=== PATIENT | female | born 1990 | race Caucasian/White ===

== ENCOUNTER → 2021-02-28 14:27 | Outpatient (BNVA) | payer OTHER, SELFPAY | PROVIDERS: Visit Provider Family Medicine | DX: Z20.822 Contact with and (suspected) exposure to COVID-19 (principal); R05.9 Cough, unspecified | CPT/HCPCS: 87400; 87635 ==

== ENCOUNTER → 2021-03-03 14:11 | Outpatient (BNVA) | payer OTHER, SELFPAY | PROVIDERS: Visit Provider Nurse Practitioner Family | DX: Z20.822 Contact with and (suspected) exposure to COVID-19 (principal) | CPT/HCPCS: 87635 ==

== ENCOUNTER 2022-08-20 12:24 | Emergency (ER) | payer OTHER, SELFPAY ==
[2022-08-20 12:33] VITALS: BMI 29.2
--- NOTE | 2022-08-20 12:41 | W.ED.UPPEXIN ---
HPI - Extremity Injury (Upper) General: Chief Complaint: Extremity Injury, Upper Stated Complaint: Right Hand/fingers Smashed Time Seen by Provider: 08/20/22 12:41 Source: patient Mode of arrival: ambulatory Limitations: no limitations History of Present Illness: Patient is a 31-year-old female who presents to ED today for evaluation of a right hand injury that she sustained just prior to arrival after the hand was slammed in a van door that was closing. She states pain is localized to her right third and fourth digits. complaint: injury to: right and finger Onset (ago): hour(s) Other Extremity Injury: Right: fingers Other injuries: none Place: home Severity: moderate Relieving factors: immobilization Exacerbating factors: movement of extremity Context: direct blow, laceration and crush Associated symptoms: Reports no associated symptoms Review of Systems Musc: Reports: extremity pain (R hand), extremity swelling (R hand), joint pain and joint swelling Skin/Breast: Reports: other (finger laceration) Neuro: Denies: numbness in extremities or sensory changes [facility] ED PFSH: Surgical History History of wisdom tooth extraction Family History Mother Psychiatric illness Father Psychiatric illness Diabetes Denies family history of CAD (coronary artery disease) Hypertension Stroke Social History Smoking and tobacco status: never smoked Alcohol intake: never Substance/Drug Use: never Household members: spouse and children Marital status: Number of children: 1 service: Yes status: Discharged branch: [employer] Current occupational status: employed Current occupation: pfs [employer] Leisure activites: [employer] Special jeff needs: No Agree to transfusion: Yes Physical Exam Const: COMMON NORMALS: no acute distress, average body habitus, patient oriented x3, no limitations, healthy appearing, alert and well nourished Extremity: COMMON NORMALS: full ROM, capillary refill normal and no clubbing, cyanosis or edema GENERAL: Yes normal exam except as noted RIGHT UPPER EXTREMITY: Yes hand & digits OTHER: TTP and swelling noted to right third and fourth digit with most of her pain being to the fourth digit; she has a small laceration overlying her fourth volar PIP joint; full range of motion; normal cap refill and sensation Neuro: COMMON NORMALS: patient oriented x3, moves all extremities, no focal motor deficits and no sensory deficits noted SENSORIUM/ORIENTATION: Yes alert Skin: TRAUMA: laceration MDM - Extremity Injury (Upper) Medical Decision Making XRs negative. The laceration was copiously irrigated. With the finger in full extension the wound edges approximate well. She would like to hold off repair and would like to just neptali tape the fingers to keep in full extension. I think this is reasonable. Wound care/infection precautions discussed. Tetanus UTD. Discharge Plan Discharge Patient Disposition: Home Clinical Impression: Crushing injury of right middle finger, initial encounter, Crushing injury of right ring finger, initial encounter Condition: Stable Prescriptions: No Action naproxen 500 mg tablet 500 mg PO BID Qty: 30 0RF omeprazole 40 mg capsule,delayed release(DR/EC) 40 mg PO DAILY Qty: 14 0RF fluoxetine 60 mg tablet 60 mg PO QAM Discharge Orders: Discharge ED (Routine); Ordered 08/20/22 Ordered By: Leann Mccoy Referrals: Asha Crews MD [Primary Care Provider] - Activity Restrictions/Additional Instructions: Monitor for signs of infection such as redness, swelling, purulent drainage, streaking up your finger or hand, worsening pain, or fevers. Please seek medical reevaluation if these occur. Follow-up with primary care in 1 to 2 weeks if fingers do not seem to be improving. Coding Level of Care Code ED Fish And Game Warden for Jennifer Becerra
--- NOTE | 2022-08-20 12:46 | XR_ITS ---
WS: [id number] Exam: XR hand RT min 3V* [id number] Date/Time of Exam: 08/20/2022 1:03 PM Reason For Exam: trauma3-4 digits Findings: No fractures, soft tissue swelling, or unusual calcifications are noted. The hand shows normal bony alignment. There is no irregularity of the bony architecture. XR/XR hand RT min 3V* [id number] IMPRESSION: Normal right hand.
== END 2022-08-20 13:58 | disposition home or self-care (01) ==
PROVIDERS: Emergency Provider Physician Assistant; PCP Family Medicine
DX: S67.192A Crushing injury of right middle finger, initial encounter (principal); S67.194A Crushing injury of right ring finger, initial encounter; W23.0XXA Caught, crushed, jammed, or pinched between moving objects, initial encounter
CPT/HCPCS: 73130; 99283

== ENCOUNTER → 2022-08-31 14:31 | Outpatient (BNVA) | payer OTHER, SELFPAY | PROVIDERS: PCP Family Medicine; Visit Provider Family Medicine | DX: Z12.4 Encounter for screening for malignant neoplasm of cervix (principal) | CPT/HCPCS: 88175 ==

== ENCOUNTER 2022-09-07 11:35 | Outpatient (CLI) | payer OTHER, SELFPAY ==
--- NOTE | 2022-09-07 11:56 | XR_ITS ---
WS: [id number] Exam: XR foot LT min 3V* [id number] Date/Time of Exam: 09/07/2022 12:01 PM Reason For Exam: left arch heel pain No fracture or dislocation. No soft tissue foreign bodies are identified. Joint structures are well-m aintained. XR/XR foot LT min 3V* [id number] IMPRESSION: 1. Negative left foot.
--- NOTE | 2022-09-07 11:56 | XR_ITS ---
WS: [id number] Exam: XR foot RT min 3V* [id number] Date/Time of Exam: 09/07/2022 12:01 PM Reason For Exam: lateral foot pain Findings: The foot was examined in multiple views and reveals no fractures or displacements of bone. No bony a nomalies are noted. The bony elements are in adequate alignment. The joint spaces are smooth and eq uidistant. XR/XR foot RT min 3V* [id number] IMPRESSION: Negative right foot.
== END 2022-09-07 11:36 | disposition home or self-care (01) ==
PROVIDERS: PCP Family Medicine; Visit Provider Family Medicine
DX: M79.671 Pain in right foot (principal); M79.672 Pain in left foot
CPT/HCPCS: 73630

== ENCOUNTER → 2024-02-07 07:51 | Outpatient (BNVA) | payer OTHER, SELFPAY | PROVIDERS: PCP Family Medicine | DX: J02.9 Acute pharyngitis, unspecified (principal) | CPT/HCPCS: 87071; 87880 ==

== ENCOUNTER 2024-02-20 05:43 | Emergency (ER) | payer OTHER, SELFPAY ==
[2024-02-20 05:58] VITALS: BP 111/69; PULSE 60; RESP 17; TEMP 36.5; O2SAT 96; BMI 29.2
--- NOTE | 2024-02-20 06:00 | XRR_ITS ---
PROCEDURE INFORMATION: Exam: XR Chest Exam date and time: 02/20/2024 6:21 AM Age: 33 years old Clinical indication: Fever TECHNIQUE: Imaging protocol: Radiologic exam of the chest. Views: 2 views. Total images: 2 COMPARISON: No relevant prior studies available. FINDINGS: Lungs: Unremarkable. No consolidation. Pleural spaces: Unremarkable. No pleural effusion. No pneumothorax. Heart/Mediastinum: Unremarkable. No cardiomegaly. Bones/joints: Unremarkable. XR/XR chest 2V* [id number] IMPRESSION: No acute findings.
--- NOTE | 2024-02-20 06:10 | ED_ITS ---
HPI - URI/Sore Throat General: Chief Complaint: Upper Respiratory Infection Stated Complaint: SOB\Cough\Fever Time Seen by Provider: 02/20/24 05:56 Source: patient Mode of arrival: ambulatory Limitations: no limitations History of Present Illness: 33-year-old female states that over the last week she has been having cough congestion fevers along with some shortness of breath. She states she has had multiple sick contacts at home denies any vomiting or diarrhea denies any worse improved factors. Associated symptoms: Reports chills and fever(s); Deny abdominal pain, chest pain, diarrhea, headache(s), nausea or vomiting Related Data Previous Rx's Medication Instructions Recorded naproxen 500 mg tablet 500 mg PO BID #30 tabs 08/17/22 fluoxetine 60 mg tablet See Rx Instructions .Route 08/01/23 .COMPLEX #90 tabs amoxicillin 500 mg tablet 500 mg PO BID 10 days #20 tabs 02/07/24 vrzuxnewazgoalp-fckkuqzdfnolojd-DG 5 ml PO Q6H PRN cold symptoms #118 02/07/24 2 mg-30 mg-10 mg/5 mL oral syrup mL (Bromfed DM) dexamethasone 4 mg tablet 8 mg (2 x 4 mg) PO DAILY 1 day #2 02/07/24 tabs benzonatate 150 mg capsule 150 mg PO Q8H PRN cough #14 caps 02/20/24 Allergies Allergy/AdvReac Type Severity Reaction Status Date / Time No Known Allergies Allergy Verified 02/20/24 06:03 Review of Systems Const: Reports: fever(s), chills and body aches; Denies: change in appetite ENMT: Denies: throat pain or dental pain Card: Denies: chest pain Resp: Reports: dyspnea and non-productive cough GI: Denies: abdominal pain, nausea, vomiting or diarrhea : Denies: dysuria Musc: Denies: neck pain or back pain Skin/Breast: Denies: rash Neuro: Denies: headache(s) PFSH ED PFSH: Surgical History History of wisdom tooth extraction Family History Mother Psychiatric illness Father Psychiatric illness Diabetes Denies family history of CAD (coronary artery disease) Hypertension Stroke Social History Smoking and tobacco/nicotine status: never used tobacco/nicotine Alcohol intake: never Substance/Drug Use: never Household members: spouse and children Marital status: Number of children: 1 service: Yes status: Discharged branch: [employer] Current occupational status: employed 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 Special jeff needs: No Agree to transfusion: Yes Physical Exam Const: COMMON NORMALS: no acute distress, patient oriented x3 and healthy appearing HENMT: COMMON NORMALS: normocephalic and atraumatic HEAD & SCALP: normocephalic and atraumatic Eye: COMMON NORMALS: Equal, round and reactive pupils present and EOMs intact bilaterally PUPIL: Yes Equal, round and reactive pupils present Neck/C-Spine: COMMON NORMALS: full ROM and supple Chest: COMMONS NORMALS: normal inspection of the chest and normal palpation of entire chest wall Resp: COMMON NORMALS: normal respiratory effort, No retractions, No use of accessory muscles and clear to auscultation bilaterally AUSCULTATION: clear to auscultation bilaterally Cardio: COMMON NORMALS: regular rate, regular rhythm and No murmurs present (Cardio) RATE: regular rate RHYTHM: regular rhythm GI: COMMON NORMALS: Normal to inspection, nondistended, normoactive bowel sounds present, Soft to palpation, non-tender and no masses PALPATION: Yes Soft to palpation Extremity: COMMON NORMALS: normal to inspection and full ROM Neuro: COMMON NORMALS: patient oriented x3, moves all extremities and no focal motor deficits Psych: COMMON NORMALS: mental status grossly normal, Normal thought process present and cooperative THOUGHT PROCESS: Normal thought process present Skin: COMMON NORMALS: no rashes or lesions noted and no wounds GENERAL SKIN EXAM: no rashes or lesions noted Course Vital Signs: Vital signs: Vital Signs Temperature 97.7 F 02/20/24 05:58 Pulse Rate 60 02/20/24 05:58 Respiratory Rate 17 02/20/24 05:58 Blood Pressure 111/69 02/20/24 05:58 Pulse Oximetry 96 02/20/24 05:58 Oxygen Delivery Me thod Room Air 02/20/24 05:58 MDM - URI/Sore Throat Medical Decision Making Patient presents here with cough fever did test positive for COVID she is well- appearing here stable for discharge follow-up PCP return if worsening. Medical Records I reviewed the patient's medical records. Lab Data I reviewed the patient's lab results. Laboratory Results Coronavirus (PCR) Positive (Negative) A 02/20/24 06:13 Influenza A (PCR) Negative (Negative) 02/20/24 06:13 Influenza Type B (PCR) Negative (Negative) 02/20/24 06:13 RSV (PCR) Negative (Negative) 02/20/24 06:13 All radiology interpretation(s) finalized by discharge Discharge Plan Discharge Patient Disposition: Home Clinical Impression: COVID-19 Condition: Stable Prescriptions: New benzonatate 150 mg capsule 150 mg PO Q8H PRN (Reason: cough) Qty: 14 0RF No Action naproxen 500 mg tablet 500 mg PO BID Qty: 30 0RF amoxicillin 500 mg tablet 500 mg PO BID 10 Days Qty: 20 0RF jhrkesbokuozaev-fkbfruael-OD [Bromfed DM] 2-30-10 mg/5 mL syrup 5 ml PO Q6H PRN (Reason: cold symptoms) Qty: 118 0RF dexamethasone 4 mg tablet 8 mg PO DAILY 1 Days Qty: 2 0RF fluoxetine 60 mg tablet See Rx Instructions .ROUTE .COMPLEX Qty: 90 1RF Dose Instruction: TAKE ONE TABLET BY MOUTH DAILY Rx Instructions: TAKE ONE TABLET BY MOUTH DAILY Discharge Orders: Discharge ED (Routine); Ordered 02/20/24 Ordered By: Nicholas Rodriguez Referrals: Asha Crews MD [Primary Care Provider] - Discharge Diet: Advance as tolerated Discharge Activity: Resume usual activity Patient Instructions: COVID-19 (Coronavirus Disease 2019) (ED) Coding Level of Care Code ED Marine Scientist for Jennifer Becerra
[2024-02-20] MEDS: dexamethasone 10 mg/mL INJ IM (06:19)
[2024-02-20 06:56] LABS: Influenza A NEGATIVE (Negative); Influenza B NEGATIVE (Negative); Respiratory Syncytial Virus Ce NEGATIVE (Negative)
[2024-02-20 06:59] LABS: Covid PCR Positive (Negative)
[2024-02-20 07:08] VITALS: BP 117/69; PULSE 62; O2SAT 98
== END 2024-02-20 07:16 | disposition home or self-care (01) ==
PROVIDERS: Emergency Provider Emergency Medicine; PCP Family Medicine
DX: U07.1 COVID-19 (principal); Z11.52 Encounter for screening for COVID-19
CPT/HCPCS: 71046; 87637; 96372; 99284; J1100